=== PATIENT | male | born 1955 | race Caucasian/White ===

== ENCOUNTER 2022-06-14 08:30 | Outpatient (RCR) | payer OTHER, SELFPAY | END 2022-06-14 10:30 | LOC: CAR 08:30 | PROVIDERS: PCP Family Medicine; Referring Provider Thoracic Surgery (Cardiothoracic Vascular Surgery); Visit Provider Thoracic Surgery (Cardiothoracic Vascular Surgery) | DX: Z95.2 Presence of prosthetic heart valve (principal) | CPT/HCPCS: 93798 ==